=== PATIENT | female | born 1950 | race Caucasian/White ===

== ENCOUNTER 2021-01-18 09:15 | Day surgery (SDC) | payer OTHER ==
[2021-01-12 14:27] VITALS: BMI 25.7
[2021-01-18] MEDS ORDERED: LIDOCAINE HCL/PF 2% SDV 5ML VIAL ONE (10:05)
[2021-01-18] MEDS ORDERED: PROPOFOL 20 ML ONE ×2 (10:06)
[2021-01-18 10:25] VITALS: TEMP 98.2
[2021-01-18 12:17] VITALS: BP 112/76; PULSE 69
== END 2021-01-18 12:20 | disposition home or self-care (01) ==
LOC: FASU-ENDO 09:15
PROVIDERS: ATTEND Internal Medicine Gastroenterology
PROC: 0DB78ZX Excision of Stomach, Pylorus, Via Natural or Artificial Opening Endoscopic, Diagnostic (ICD-10-PCS; 2021-01-18)
PROC: 0DB98ZX Excision of Duodenum, Via Natural or Artificial Opening Endoscopic, Diagnostic (ICD-10-PCS; principal; 2021-01-18 11:00)
DX: K29.50 Unspecified chronic gastritis without bleeding (principal)
CPT/HCPCS: 88305-TC; 88342-TC

== ENCOUNTER 2021-06-21 11:09 | Day surgery (SDC) | payer OTHER ==
[2021-06-15 12:34] VITALS: BMI 27.8
[2021-06-21 14:38] VITALS: BP 110/64; PULSE 80; TEMP 98.2
== END 2021-06-21 13:30 ==
LOC: FASU 11:09
PROVIDERS: ATTEND Internal Medicine Gastroenterology
PROC: 0DB68ZX Excision of Stomach, Via Natural or Artificial Opening Endoscopic, Diagnostic (ICD-10-PCS; 2021-06-21)
PROC: 0DB48ZX Excision of Esophagogastric Junction, Via Natural or Artificial Opening Endoscopic, Diagnostic (ICD-10-PCS; 2021-06-21)
PROC: 0DB98ZX Excision of Duodenum, Via Natural or Artificial Opening Endoscopic, Diagnostic (ICD-10-PCS; principal; 2021-06-21 12:04)
DX: K29.80 Duodenitis without bleeding (principal); K29.50 Unspecified chronic gastritis without bleeding; K21.00 Gastro-esophageal reflux disease with esophagitis, without bleeding; R10.13 Epigastric pain